=== PATIENT | female | born 1980 | race Caucasian/White ===

== ENCOUNTER 2021-12-18 17:47 | Emergency (ER) | payer BC, SELFPAY ==
[2021-12-18 18:00] VITALS: BP 151/95; PULSE 105; RESP 18; TEMP 37.7; O2SAT 100
--- NOTE | 2021-12-18 18:16 | ED.GENADULT ---
HPI - General Adult General Chief complaint: Back Pain/Injury Stated complaint: Back Pain Time Seen by Provider: 12/18/21 18:16 Source: patient Mode of arrival: ambulatory Limitations: no limitations History of Present Illness HPI narrative: 40-year-old female presented for complaint of bilateral low back pain, onset about 1 week ago after working in the yard. States she lifted heavy bail of hay. Since then pain has not improved. Worse with laying flat and bending movement. Pain 7/10, dull nagging. Denies associated numbness, tingling, weakness in the lower extremities, denies radiating pain to the legs. She is taking Advil and Aleve for symptoms. Denies nausea, vomiting, diarrhea, urinary complaints, fever or chills. Related Data Home Medications Medication Instructions Recorded Confirmed buspirone 7.5 mg PO DAILY PRN 12/18/21 12/18/21 erenumab-aooe [Aimovig 70 mg SUBCUT MONTHLY 12/18/21 12/18/21 Autoinjector] sertraline 50 mg PO DAILY 12/18/21 12/18/21 ubrogepant [Ubrelvy] 100 mg PO PRN PRN 12/18/21 12/18/21 Allergies Allergy/AdvReac Type Severity Reaction Status Date / Time codeine AdvReac Intermediate abdominal Verified 12/18/21 17:51 cramping, vomitting Review of Systems Review of Systems: CONSTITUTIONAL: Denies body aches, fever, chills EYES: Denies visual changes ENT: Denies rhinorrhea, congestion CARDIOVASCULAR: Denies chest pain, palpitations, or edema. RESPIRATORY: Denies cough or dyspnea. GASTROINTESTINAL: Denies abdominal pain, nausea, vomiting, or diarrhea. SKIN: Denies rash, itching, or wounds. MUSCULOSKELETAL: Reports back pain NEUROLOGIC: Denies headache, numbness, tingling, or weakness. PSYCH: Denies depression or anxiety. All systems reviewed & are unremarkable except as noted in HPI and below PMFSH Comments At time of signature, I have reviewed and agree with nursing past medical, surgical, social and family history unless otherwise noted. Please see nursing chart for further information. There is no relevant family history pertinent to the presenting complaint Exam Narrative: GENERAL: Well-appearing, well-nourished, and in no acute distress. HEAD: Normocephalic, atraumatic. EYES: PERRLA, conjunctivae clear NECK: Supple. CHEST: Speaks in full sentences. No respiratory distress. HEART: Regular rate and rhythm. Normal and equal peripheral pulses. EXTREMITIES: No vertebral point tenderness, ambulates with steady gait, lower extremities normal strength and sensation, normal range of motion with flexion/extension/rotation, but endorses pain to bilateral lower back with bending movement. no skin lesions, edema or ecchymosis; alignment normal, pulse palpable and equal bilaterally, skin warm, dry, pink. Capillary refill less than 3 seconds. SKIN: Warm, dry, no rash. NEURO: Alert and oriented x3. PSYCH: Normal mood and affect Course Course Emergency Course: Patient is aware of diagnosis, understands and agrees to treatment plan. Anticipatory guidance given. Patient agrees to follow-up as directed and is aware of reasons to seek care at the emergency department. Portions of this record may have been created with voice recognition software Level of Care: Express Care Visit Vital Signs Vital signs: Vital Signs Temperature 99.8 F H 12/18/21 18:00 Pulse Rate 105 H 12/18/21 18:00 Respiratory Rate 18 12/18/21 18:00 Blood Pressure 151/95 H 12/18/21 18:00 Pulse Oximetry 100 12/18/21 18:00 Temperature 99.8 F H 12/18/21 18:00 Pulse Rate 105 H 12/18/21 18:00 Respiratory Rate 18 12/18/21 18:00 Blood Pressure 151/95 H 12/18/21 18:00 Pulse Oximetry 100 12/18/21 18:00 Reviewed Medical Decision Making MDM Narrative Medical decision making narrative: No risk factors or findings concerning for epidural abscess, diskitis, vertebral osteomyelitis, cord compression, cauda equina, vertebral fracture or bone malignancy, AAA, or pyelonephritis. Patient instructed
== END 2021-12-18 18:30 | disposition home or self-care (01) ==
PROVIDERS: Emergency Provider Nurse Practitioner Family
DX: S39.012A Strain of muscle, fascia and tendon of lower back, initial encounter (principal); X50.0XXA Overexertion from strenuous movement or load, initial encounter
CPT/HCPCS: 81003; 87086; 99213; G0463